=== PATIENT | male | born 1985 | race Caucasian/White ===

== ENCOUNTER 2023-05-20 09:23 | Day surgery (SDC) | payer BC ==
[2023-05-18 13:57] VITALS: BMI 28.5
[~2023-05-20 09:23] MED LIST: LACTATED RINGERS 1,000 ML IV SCH; LIDOCAINE 1% (10MG/ML) FOR IV START INTRADERMA PRN
[2023-05-20 09:53] VITALS: TEMP 97.4
[2023-05-20] MEDS ORDERED: fentaNYL (PF) 50 MCG/ML 2 ML AMP ONE (10:23)
[2023-05-20] MEDS ORDERED: LIDOCAINE 2% (PF) 20 MG/ML 5 ML VIAL ONE (10:23)
[2023-05-20] MEDS ORDERED: PROPOFOL 10 MG/ML 20 ML VIAL IV ONE (10:23)
--- NOTE | 2023-05-20 10:35 | P.PCN ---
Date of Procedure: 05/20/23 Procedure(s) Performed: BRIEF HISTORY: Patient is a 38-year-old, pleasant, white male scheduled for an upper endoscopy as a part of evaluation of intermittent dysphagia to solids for the last 4 years duration. However in the last 1 year has been having frequent symptoms almost once or twice a day with solids. His and scheduled for an upper endoscopy with possible dilation. He also has a history of GERD and takes omeprazole as needed. PROCEDURE PERFORMED: Esophagogastroduodenoscopy with biopsy and dilation. PREOPERATIVE DIAGNOSIS: GERD/intermittent dysphagia to solids. IV sedation per anesthesia. PROCEDURE: After informed consent was obtained, the patient was brought into the endoscopy unit. IV sedation was administered by Anesthesia under continuous monitoring. Initially the Olympus GIF-140 video endoscope was inserted into the mouth. Esophagus intubated without any difficulty. It was gradually advanced into the stomach and duodenum and carefully examined. The bulb and the second part of the duodenum appeared normal. The scope at this time was withdrawn to the stomach, adequately insufflated with air, and upon careful examination, mucosa of the antrum, body, cardia and the fundus appeared normal. The scope was then withdrawn into the esophagus. Hiatal hernia noted. The GE junction was located at 39 cm from the incisors. The distal esophagus to check noted that was dilated using 12-13.5 mm TTS balloon in a sequential fashion for 30 seconds. Following the dilation there was some oozing identified and hence further dilation was not performed. There were linear erosions and ulcerations noted in the distal esophagus consistent with LA grade D reflux esophagitis. Mucosa of the mid esophagus appeared very thickened and wishes for eosinophilic esophagitis and multiple biopsies were done from this area. Rest of the esophagus appeared normal and the patient tolerated the procedure well. IMPRESSION: 1. Distal esophageal stricture status post balloon dilation using 12 and 13.5 mm TTS balloon as described above. 2. Linear erosions and ulcerations in the distal esophagus consistent with LA grade D reflux esophagitis 3. Thickened esophageal folds involving the mid and distal esophagus status post multiple biopsies to rule out eosinophilic esophagitis. 4. Small hiatal hernia. RECOMMENDATIONS: The findings of this examination were discussed with the patient as well as his family. He was advised to follow with the biopsy results. He will remain on clear liquids for 2 hours. He was started back on omeprazole 20 mg twice daily and follow in office in 3-4 weeks..
[2023-05-20 11:18] VITALS: BP 127/83; PULSE 74; RESP 18
== END 2023-05-20 11:14 | disposition home or self-care (01) ==
LOC: ORWHC2ENDO 09:23
PROVIDERS: ATTEND Internal Medicine Gastroenterology
DX: K22.10 Ulcer of esophagus without bleeding (principal); K21.00 Gastro-esophageal reflux disease with esophagitis, without bleeding; K44.9 Diaphragmatic hernia without obstruction or gangrene; K22.2 Esophageal obstruction; Z79.899 Other long term (current) drug therapy
CPT/HCPCS: 88305; 43239; 43249; J3010; J2704; J2001; C1726

== ENCOUNTER 2024-01-22 15:21 | Emergency (ER) | payer OTHER, BC ==
[2024-01-22 15:51] VITALS: RESP 18
--- NOTE | 2024-01-22 16:14 | ED ---
Lower Extremity Injury HPI - General Source: patient, RN notes reviewed Mode of arrival: ambulatory Limitations: no limitations <Wanda Matias - Last Filed: 01/22/24 16:13> <Isabel Ruvalcaba - Last Filed: 01/22/24 19:32> - General Chief Complaint: Extremity Injury, Lower Stated Complaint: IHS-Leg Laceration Time Seen by Provider: 01/22/24 15:40 - History of Present Illness Initial Comments: Valente oakley is a 38-year-old male presents the emergency department chief complaint of any accidental laceration to his left hip while he was at work. States that he excellently cut himself with a scalpel. Bleeding is controlled. States his last tetanus vaccine was within the last 5 years. No other acute complaints at this time. (Wanda Matias) 38-year-old male presents to the emergency department for evaluation of wound on his left lateral leg from a knife at work. He states that the knife punctured his leg. He is up-to-date on his tetanus vaccine. He reports that the area feels bruised but no other injury or complaints. (Isabel Ruvalcaba) - Related Data Home Medications Medication Instructions Recorded Confirmed Omeprazole [PriLOSEC] 05/20/23 Allergies Allergy/AdvReac Type Severity Reaction Status Date / Time No Known Allergies Allergy Verified 01/22/24 15:51 Review of Systems ROS Other: All systems not noted in ROS Statement are negative. <Wanda Matias - Last Filed: 01/22/24 16:13> ROS Other: All systems not noted in ROS Statement are negative. <Isabel Ruvalcaba - Last Filed: 01/22/24 19:32> ROS Statement: Those systems with pertinent positive or pertinent negative responses have been documented in the HPI. Past Medical History Past Medical History: No Reported History History of Any Multi-Drug Resistant Organisms: None Reported Past Surgical History: No Surgical Hx Reported Additional Past Surgical History / Comment(s): lasic on both eyes Past Anesthesia/Blood Transfusion Reactions: No Reported Reaction Additional Past Anesthesia/Blood Transfusion Reaction / Comment(s): no blood transfusion Past Psychological History: No Psychological Hx Reported Smoking Status: Never smoker Past Alcohol Use History: None Reported Past Drug Use History: None Reported <Wanda Matias - Last Filed: 01/22/24 16:13> General Exam Limitations: no limitations <Wanda Matias - Last Filed: 01/22/24 16:13> Limitations: no limitations General appearance: alert, in no apparent distress Head exam: Present: atraumatic, normocephalic, normal inspection Respiratory exam: Present: normal lung sounds bilaterally. Absent: respiratory distress, wheezes, rales, rhonchi, stridor Cardiovascular Exam: Present: regular rate, normal rhythm, normal heart sounds. Absent: systolic murmur, diastolic murmur, rubs, gallop, clicks Extremities exam: Present: full ROM, normal capillary refill. Absent: tenderness, pedal edema, joint swelling, calf tenderness Back exam: Present: normal inspection Neurological exam: Present: alert, oriented X3 Psychiatric exam: Present: normal affect, normal mood Skin exam: Present: warm, dry, other (small puncture wound to left lateral thigh). Absent: intact <Isabel Ruvalcaba - Last Filed: 01/22/24 19:32> - General Exam Comments Initial Comments: Visual Physical Exam Vital signs reviewed General: Well-appearing, nontoxic, no acute distress. Head: Normocephalic, atraumatic Eyes: PERRLA, EOMI ENT: Airway patent Chest: Nonlabored breathing Skin: No visual rash, normal skin tone Neuro: Alert and oriented 3 Musculoskeletal: No gross abnormalities (Wanda Matias) Course Vital Signs 01/22/24 01/22/24 15:48 17:40 Temperature 98.1 F 98 F Pulse Rate 94 88 Respiratory 18 18 Rate Blood Pressure 137/90 130/87 O2 Sat by Pulse 99 99 Oximetry Medical Decision Making <Wanda Matias - Last Filed: 01/22/24 16:13> <Isabel Ruvalcaba - Last Filed: 01/22/24 19:32> - Medical Decision Making I completed the quick note portion of this chart signed Wanda Matias PA-C (Wanda Matias) Was pt. sent in by a medical professional or institution ([facility], [employer], urgent care, hospital, or longterm...) When possible be specific @ -No Did you speak to anyone other than the patient for history (EMS, parent, family, police, friend...)? What history was obtained from this source @ -No Did you review nursing and triage notes (agree or disagree)? Why? @ -I reviewed and agree with nursing and triage notes Were old charts reviewed (outside hosp., previous admission, EMS record, old EKG, old radiological studies, urgent care reports/EKG's, longterm records)? Report findings @ -No old charts were reviewed Differential Diagnosis (chest pain, altered mental status, abdominal pain women, abdominal pain men, vaginal bleeding, weakness, fever, dyspnea, syncope, headache, dizziness, GI bleed, back pain, seizure, CVA, palpatations, mental health, musculoskeletal)? @ -Differential Musculoskeletal Muscular strain, contusion, ligament sprain, fracture, arthritis, septic arthritis, bursitis, cellulitis, muscle spasm, nerve compression, DVT, arterial occlusion, herpes zoster, electrolyte abnormality, tumor.... This is not meant to be in all inclusive list EKG interpreted by me (3pts min.). @ -None X-rays interpreted by me (1pt min.). @ -None done CT interpreted by me (1pt min.). @ -None done U/S interpreted by me (1pt. min.). @ -None done What testing was considered but not performed or refused? (CT, X-rays, U/S, labs)? Why? @ -None What meds were considered but not given or refused? Why? @ -None Did you discuss the management of the patient with other professionals (professionals i.e. , PA, [employer], lab, RT, psych nurse, forensic social worker, booking manager, teacher, submarine advisory team watch officer, bilingual case manager)? Give summary @ -No Was smoking cessation discussed for >3mins.? @ -No Was critical care preformed (if so, how long)? @ -No Were there social determinants of health that impacted care today? How? (Homelessness, low income, unemployed, alcoholism, drug addiction, transportation, low edu. Level, literacy, decrease access to med. care, fpc, rehab)? @ -No Was there de-escalation of care discussed even if they declined (Discuss DNR or withdrawal of care, Hospice)? DNR status @ -No What co-morbidities impacted this encounter? (DM, HTN, Smoking, COPD, CAD, Cancer, CVA, ARF, Chemo, Hep., AIDS, mental health diagnosis, sleep apnea, morbid obesity)? @ -None Was patient admitted / discharged? Hospital course, mention meds given and route, prescriptions, significant lab abnormalities, going to OR and other pertinent info. @ -Discharged. Patient presented to the emergency department for evaluation of puncture wound to the left lateral thigh with a knife at work. He is up-to-date on tetanus vaccine. The wound was cleaned. Advised on acute wound care. Patient is understanding agreeable plan. Patient stable at time of discharge. Case discussed with Dr. Tariq. Undiagnosed new problem with uncertain prognosis? @ -No Drug Therapy requiring intensive monitoring for toxicity (Heparin, Nitro, Insulin, Cardizem)? @ -No Were any procedures done? @ -No Diagnosis/symptom? @ -Puncture wound Acute, or Chronic, or Acute on Chronic? @ -Acute Uncomplicated (without systemic symptoms) or Complicated (systemic symptoms)? @ -Uncomplicated Side effects of treatment? @ -No Exacerbation, Progression, or Severe Exacerbation? @ -No Poses a threat to life or bodily function? How? (Chest pain, [place], SD, pneumonia, PE, COPD, DKA, ARF, appy, cholecystitis, CVA, Diverticulitis, Homicidal, Suicidal, threat to staff... and all critical care pts) @ -No (Isabel Ruvalcaba) Disposition <Wanda Matias - Last Filed: 01/22/24 16:13> Is patient prescribed a controlled substance at d/c from ED?: No <Isabel Ruvalcaba - Last Filed: 01/22/24 19:32> Clinical Impression: Puncture wound Disposition: HOME SELF-CARE Condition: Stable Instructions (If sedation given, give patient instructions): Puncture Wound (ED) Additional Instructions: Please follow up with your primary care provider. Return to the emergency department for new or worsening symptoms. Referrals: Nabor Land MD [Primary Care Provider] - 1-2 days
[2024-01-22] MEDS: LIDOCAINE 1% INJ 10MG/ML (20 ML MDV) SQ ONE (16:39)
[2024-01-22 17:42] VITALS: BP 130/87; PULSE 88; TEMP 98
== END 2024-01-22 17:42 | disposition home or self-care (01) ==
LOC: EC 15:21
DX: S71.032A Puncture wound without foreign body, left hip, initial encounter (principal); W26.0XXA Contact with knife, initial encounter
CPT/HCPCS: 99282; J2001